=== PATIENT | female | born 1935 | race Caucasian/White ===

== ENCOUNTER 2017-03-23 13:50 | Outpatient (CLI) | payer OTHER, MEDICARE ==
--- NOTE | 2017-03-23 16:15 | DIAGNOSTIC IMAGING REPORT ---
PROCEDURE: US ABDOMEN ULTRASOUND-COMPLETE INDICATION: RUQ ABDOMINAL PAIN TECHNIQUE: Nicole scale and color Doppler sonographic images of the abdomen were obtained. COMPARISON: None. FINDINGS: Liver measures 17.4 cm with increased echogenicity. Spleen and visualized portions pancreas are normal. Normal gallbladder and CBD (4 mm). Negative Minor's sign. Aorta and IVC are patent. Normal hepatopetal flow. Normal kidneys. Right kidney measures 9.2 cm and left kidney 11.3 cm. IMPRESSION: 1. Hepatic steatosis versus intrinsic liver disease
--- NOTE | 2017-03-23 16:37 | DIAGNOSTIC IMAGING REPORT ---
PROCEDURE: US COMPLETE PELVIC W/TRANSVAG INDICATION: POST MENOPAUSAL BLEEDING TECHNIQUE: Transabdominal and endovaginal angeles scale and color Doppler sonographic images of the female pelvis were obtained. COMPARISON: None. FINDINGS: TRANSABDOMINAL SCANS: Normal kidneys. TRANSVAGINAL SCANS: Retroverted uterus measures 5.2 x 3.3 x 3.7 cm. Myometrium is unremarkable. Thickened endometrium measures 7.1 mm. Ovaries not visualized. No adnexal mass or free fluid. IMPRESSION: 1. Thickened endometrium (7.1 mm) in a postmenopausal patient. This may represent blood, hyperplasia or neoplastic change. Recommend tissue biopsy. 2. Atrophic changes
== END 2017-03-23 23:00 ==
LOC: US SRH 13:50
DX: R10.11 Right upper quadrant pain (principal); R93.8 Abnormal findings on diagnostic imaging of other specified body structures